=== PATIENT | female | born 1995 | race Two or more races ===

== ENCOUNTER 2024-05-07 15:44 | Emergency (ER) | payer MEDICAID, SELFPAY ==
[2024-05-07 16:20] VITALS: BP 130/70; PULSE 80; RESP 18; TEMP 36.6; O2SAT 100; BMI 28.3
--- NOTE | 2024-05-07 16:38 | PD.EDWOUND ---
ED Wound/Laceration-RME/HPI General Chief Complaint: Wound/Laceration Stated Complaint: LEFT INDEX FINGER LACERATION Time Seen by Provider: 05/07/24 16:08 Source: patient Arrival date/time: 05/07/24 15:44 This is a 29-year-old female presents to the emergency department with complaints of a skin avulsion distal left index finger. Patient reports she was attempting to cut an object with a knife and slipping causing a skin avulsion. Full range of motion no other concerns. Mode of arrival: ambulatory Related Data Previous Rx's ?Medication ?Instructions ?Recorded cyclobenzaprine 5 mg tablet See Rx Instructions PO QHS PRN 10/06/19 muscle spasm #10 tabs ibuprofen 600 mg tablet 600 mg PO Q6HR #20 tabs 10/06/19 Allergies Allergy/AdvReac Type Severity Reaction Status Date / Time Penicillins Allergy Unknown RASH Verified 05/07/24 15:47 Review of Systems Review of Systems Systems Reviewed: All systems reviewed, normal except as documented Narrative Review of Systems: Gen: No fever, no chills, no weight loss EYES: No discharge, no visual changes, no pain HEENT: No ear pain, no congestion, no sore throat PULM: No shortness of breath, no cough, no congestion CV: No chest pain, no dyspnea on exertion, no palpitations GI: No nausea, no vomiting, no diarrhea, no pain, no constipation : No frequency, no urgency,? no dysuria Musc/skel: No joint pain, no back pain Skin: +laceration Course Quality Measures none Vital Signs Vital signs: Vital Signs Temperature 98 F 05/07/24 16:20 Pulse Rate 80 05/07/24 16:20 Respiratory Rate 18 05/07/24 16:20 Blood Pressure 130/70 05/07/24 16:20 Pulse Oximetry (%) 100 05/07/24 16:20 Oxygen Delivery Method Room Air 05/07/24 16:20 Wound / Laceration Patient data External records reviewed:: [facility] previous records Clinical information provided by:: patient Social determinants that could affect healthcare access:: none Patient has the following chronic illnesses:: no How is presenting disease/condition affected by chronic disease/condition?: no chronic disease Evaluation data The following diagnostics were reviewed and interpreted by me:: other (specify) Lab and/or radiology exams considered but not ordered:: no Interpretation Summary: no Medications / Prescriptions Medications or Prescriptions considered but not ordered:: no Medication administrations:: no Consultations Consultation(s) initiated? (list below): No Diagnosis Wound Differential Diagnosis: laceration, abscess, abrasion and avulsion of skin Most likely diagnosis given after review of the tests above:: Skin avulsion Admission Indicated Admission indicated?: not indicated Admission Request Was there a request for admission?: No Disposition Plan Disposition Plan: Discharge Discharge Attestation Discharge Attestation: The patient and all family members were given an opportunity to ask questions and understood the discharge instructions. Discharge instructions specifically effects, indications for sooner follow up or return to the emergency department, and the expected course of current diagnosis. Patient condition: Stable Discharge Plan Plan Patient Disposition: HOME (Self Care) Patient condition on transfer: Stable Prescriptions/Referrals Prescriptions/Med Rec: No Action ibuprofen 600 mg tablet 600 mg PO Q6HR Qty: 20 0RF cyclobenzaprine 5 mg tablet See Rx Instructions PO QHS PRN (Reason: muscle spasm) Qty: 10 0RF Dose Instruction: 1-2 tabs PO QHS PRN; Rx Instructions: 1-2 tabs PO QHS PRN; Problem List Clinical Impression: Avulsion of skin Patient/Caregiver Discharge Instructions Discharge Activity: activity as tolerated Education Materials: Contusion Bone Tx Additional Instructions: -Please keep wound clean follow up with your pcp Return to ED if any worsening symptoms Print Language: Kazakh Stand Alone Forms: Mill[employer]ent Award Info., Work/School Release, Patient Portal Info Letter PA/HUSSEIN Supervising Physician AKIN/HUSSEIN Supervising Physician: dr. Sosa
== END 2024-05-07 17:31 | disposition home or self-care (01) ==
LOC: SERX 16:49
PROVIDERS: Emergency Provider Emergency Medicine
DX: S61.211A Laceration without foreign body of left index finger without damage to nail, initial encounter (principal); W26.0XXA Contact with knife, initial encounter; Y93.89 Activity, other specified
CPT/HCPCS: 99281

== ENCOUNTER 2025-01-22 19:38 | Emergency (ER) | payer MEDICAID, SELFPAY ==
[2025-01-22 19:39] VITALS: BMI 30.4
[2025-01-22 19:50] VITALS: BP 123/86; PULSE 94; RESP 19; TEMP 36.8; O2SAT 97
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
[2025-01-22 22:13] LABS: Collection Type, Urine Clean Catch
[2025-01-22 22:25] LABS: HCG Qualitative,Urine Negative
[2025-01-22 22:27] LABS: Bilirubin,Urine Negative (Negative); Blood,Urine Negative (Negative); Clarity,Urine Clear (Clear/Hazy); Color,Urine Yellow (Lt Yel-Yel); Culture Indicated,Urine Not Indicated; Glucose, Urine Negative (Negative); Ketones,Urine Negative (Negative); Leukocyte Esterase,Urine Negative (Negative); Nitrite,Urine Negative (Negative); PH,Urine 5.5 (5.0-7.0); Protein,Urine Trace (Neg - Trace); RBC,Urine 1 /hpf (0-3); Specific Gravity,Urine 1.031 (1.001-1.035); Squamous Epithelial Cell,Urine 1 /hpf (0-5); Urobilinogen,Urine Negative mg/dL (0.0-1.0); WBC,Urine 1 /hpf (0-5)
[2025-01-22] MEDS: KETOROLAC INJ 60 MG/2 ML VIAL 30 MG IM (23:13)
[2025-01-23 00:21] VITALS: BP 146/86; PULSE 86; RESP 19; TEMP 37; O2SAT 97
== END 2025-01-23 01:05 | disposition home or self-care (01) ==
PROVIDERS: Physician Assistant; Emergency Provider Emergency Medicine; PCP Physician Assistant
DX: S29.012A Strain of muscle and tendon of back wall of thorax, initial encounter (principal); S39.012A Strain of muscle, fascia and tendon of lower back, initial encounter; S13.4XXA Sprain of ligaments of cervical spine, initial encounter; V89.2XXA Person injured in unspecified motor-vehicle accident, traffic, initial encounter
CPT/HCPCS: 72125; 72128; 72131; 81001; 81025; 96372; 99284; J1885